=== PATIENT | female | born 1975 | race American Indian/Alaskan Native ===

== ENCOUNTER 2017-10-15 08:46 | Outpatient (CLI) | payer BC ==
--- NOTE | 2017-10-16 08:07 | Mammography Report ---
Bilateral mammogram with tomosynethesis: No previous study available. CAD study utilized. Findings: Scattered lingular parenchyma bilaterally. No mass or microcalcification. Benign axilla. Tomosynethesis examination reveals no distinct mass or microcalcification. Impression: Essentially negative mammogram. BI-RADS CATEGORY: 2 = Benign ACR BI-RADS MAMMOGRAPHIC CODES: 0 = Needs additional imaging evaluation; 1 = Negative; 2 = Benign; 3 = Probably benign; 4 = Suspicious; 5 = Malignant; 6 = Known biopsy-proven malignancy COMMENT: 1. Dense breast tissue, i.e., adenosis, fibrocystic changes, etc., may obscure an underlying neoplasm. 2. Approximately 10% of cancers are not detected with mammography. 3. A negative mammography report should not delay biopsy if a clinically suspicious mass is present. COMMENT: Patient follow-up letters are generated in [employer].
== END 2017-10-15 08:47 | disposition home or self-care (01) ==
LOC: MAMMO 08:46
PROVIDERS: ATTEND Internal Medicine
DX: Z12.31 Encounter for screening mammogram for malignant neoplasm of breast (principal)
CPT/HCPCS: 77063; 77067

== ENCOUNTER 2017-11-21 10:03 | Outpatient (CLI) | payer BC ==
--- NOTE | 2017-11-21 10:52 | Mammography Report ---
Left mammogram and left breast ultrasound: Patient presents with a recently palpable nodule by her and her physician although she can no longer palpate the finding. A marker however is placed over the area identified by the patient. Routine mammography is performed and compared to a recent exam in October 2017. No changes are identified. The breast pattern is heterogeneously dense. Ultrasound over the area of concern in the 6 to 9:00 location shows no findings of significance. Impression: Stable breast pattern with no findings on mammography or ultrasound. Recommendation: Clinical followup. Any additional evaluation should be based on your concern. Otherwise, annual mammogram followup. BI-RADS CATEGORY: 1 = Negative ACR BI-RADS MAMMOGRAPHIC CODES: 0 = Needs additional imaging evaluation; 1 = Negative; 2 = Benign; 3 = Probably benign; 4 = Suspicious; 5 = Malignant; 6 = Known biopsy-proven malignancy COMMENT: 1. Dense breast tissue, i.e., adenosis, fibrocystic changes, etc., may obscure an underlying neoplasm. 2. Approximately 10% of cancers are not detected with mammography. 3. A negative mammography report should not delay biopsy if a clinically suspicious mass is present.
== END 2017-11-21 10:04 | disposition home or self-care (01) ==
LOC: MAMMO 10:03
PROVIDERS: ATTEND Obstetrics & Gynecology
DX: N63.24 Unspecified lump in the left breast, lower inner quadrant (principal)

== ENCOUNTER 2019-01-06 08:05 | Outpatient (CLI) | payer BC ==
[2019-01-06 11:16] LABS: Hematocrit 38.8 % (30.3-42.9); Mean Corpuscular HGB Conc 33 % (30-34); Mean Corpuscular Volume 92 fl (79-97); Platelet Count 239 K/mm3 (140-440); Red Blood Count 4.23 M/mm3 (3.65-5.03); Red Cell Distribution Width 14.3 % (13.2-15.2)
[2019-01-06 11:42] LABS: Alanine Aminotransferase 42 units/L (7-56); Albumin 4.2 g/dL (3.9-5); BUN/Creatinine Ratio 10; Blood Urea Nitrogen 10 mg/dL (7-17); Calcium 9.8 mg/dL (8.4-10.2); Chol/HDL Ratio 3.83 %; HDL Cholesterol 62 mg/dL (40-59); Hemolysis Index 3; LDL Cholesterol,Direct 182 mg/dL (50-130)
--- NOTE | 2019-01-06 12:06 | Mammography Report ---
DIGITAL SCREENING MAMMOGRAM WITH TOMOSYNTHESIS WITH CAD, 01/06/2019 INDICATION: Screening. TECHNIQUE: Digital bilateral 2D and 3D mammography with tomosynthesis was obtained in the craniocaud al and mediolateral oblique projections. Computer-Aided Detection (CAD) analysis was used for interp retation of this study. COMPARISON: 10/15/2017 FINDINGS: Breast Density: The breasts are heterogeneously dense, which may obscure small masses. There is no evidence of dominant mass, suspicious calcifications or architectural distortion in eithe r breast. No significant interval change IMPRESSION: No evidence for malignancy. BI-RADS Category 1: Negative. No mammographic evidence of malignancy. Recommend routine screening mammography in one year. A "normal" or negative report should not discourage follow up or biopsy of a clinically significant f inding. A written summary of these findings will be mailed to the patient. The patient will be entered into a mammography reporting system which will generate a reminder letter for the patient's next appointmen t at the appropriate interval. The [employer] recommends yearly mammograms starting at age 40 and continuing as l [place] as a woman is in good health. Breast MRI is recommended for women with an approximate 20-25% or greater lifetime risk of breast cancer, including women with a strong family history of breast or ova kalee cancer or who have been treated for Hodgkin's disease. Signer Name: Emy Chavis MD Signed: 01/06/2019 12:02 PM Workstation Name: [id number]
[2019-01-09 12:45] LABS: Vitamin D, 25-OH, D2 <4 ng/mL
== END 2019-01-06 08:06 | disposition home or self-care (01) ==
LOC: SPVWC 08:05 → MAMMO 08:05 → SPVWC 08:06
PROVIDERS: ATTEND Obstetrics & Gynecology
DX: Z12.31 Encounter for screening mammogram for malignant neoplasm of breast (principal)
CPT/HCPCS: 36415; 77063; 77067; 80053; 80061; 82306; 82670; 83001; 83036; 84402; 84443; 85027; 86592; 86706; 86803; 86900; 86901; 87806

== ENCOUNTER 2020-04-07 15:18 | Outpatient (CLI) | payer BC ==
[2020-04-07 16:04] LABS: Hematocrit 37.9 % (30.3-42.9); Hemoglobin 12.8 gm/dl (10.1-14.3); Mean Corpuscular HGB Conc 34 % (30-34); Mean Corpuscular Volume 90 fl (79-97); Platelet Count 287 K/mm3 (140-440); Red Blood Count 4.21 M/mm3 (3.65-5.03); Red Cell Distribution Width 14.7 % (13.2-15.2)
[2020-04-07 16:22] LABS: Alanine Aminotransferase 10 units/L (7-56); Albumin 4.2 g/dL (3.9-5); BUN/Creatinine Ratio 18; Blood Urea Nitrogen 18 mg/dL (7-17); Calcium 9.5 mg/dL (8.4-10.2); Chol/HDL Ratio 3.97 %; HDL Cholesterol 68 mg/dL (40-59); Hemolysis Index 6; LDL Cholesterol,Direct 194 mg/dL (50-130)
[2020-04-11 13:49] LABS: Vitamin D, 25-OH, D2 <4 ng/mL
== END 2020-04-07 15:19 | disposition home or self-care (01) ==
LOC: LAB 15:18
PROVIDERS: ATTEND Obstetrics & Gynecology
DX: Z13.220 Encounter for screening for lipoid disorders (principal); Z13.29 Encounter for screening for other suspected endocrine disorder; Z13.21 Encounter for screening for nutritional disorder
CPT/HCPCS: 36415; 80053; 80061; 82306; 82728; 83036; 84436; 84443; 84481; 85027

== ENCOUNTER 2020-04-12 10:35 | Outpatient (CLI) | payer BC ==
--- NOTE | 2020-04-12 16:13 | Ultrasound Report ---
CLINICAL DATA: PELVIC MASS TECHNICAL DATA: Ultrasound, pelvic (nonobstetric), real-time with image documentation; transabdominal and transvagina l imaging with Doppler was performed. FINDINGS: The uterus is of normal size and echogenicity. Several uterine fibroids are present, largest fibroid measures 3.8 cm located in the fundus and second 3.0 cm in the lower uterine segment. Several smaller uterine fibroids are noted. Endometrial thickness is within normal limits. The right and left ovaries are of symmetric size and echogenicity. There are no ovarian or adnexal ma sses. Doppler imaging demonstrates normal vascular flow to both ovaries. There is no significant quantity of free fluid dependently within the pelvis. IMPRESSION: Multiple uterine fibroids as noted GUIDELINES FOR IMAGING OF OVARIAN--ADNEXAL CYST: WOMEN OF REPRODUCTIVE AGE: 1. Cysts <=3 cm: Normal physiologic findings; at the discretion of the interpreting physician whether or not to describe them in the imaging report; do not need follow-up. 2. Cysts >3 and <=5 cm: Should be described in the imaging report with a statement that they are almo st certainly benign; do not need follow-up. 3. Cysts >5 and <=7 cm: Should be described in the imaging report with a statement that they are almo st certainly benign; yearly follow-up with US recommended. 4. Cysts >7 cm: Since these may be difficult to assess completely with US, further imaging with magne tic resonance (MR) or surgical evaluation should be considered. POSTMENOPAUSAL WOMEN: 1. Cysts <=1 cm: Are clinically inconsequential; at the discretion of the interpreting physician whet her or not to describe them in the imaging report; do not need follow-up. 2. Cysts >1 and <=7 cm: Should be described in the imaging report with statement that they are almost certainly benign; yearly follow-up, at least initially, with US recommended. Some practices may opt to increase the lower size threshold for follow-up from 1 cm to as high as 3 cm. One may opt to jesus nue follow-up annually or to decrease the frequency of follow-up once stability or decrease in size h as been confirmed. Cysts in the larger end of this range should still generally be followed on a regu lar basis. 3. Cysts >7 cm: Since these may be difficult to assess completely with US, further imaging with MR or surgical evaluation should be considered. Signer Name: Luis Alberto Rendon MD Signed: 04/12/2020 4:08 PM Workstation Name: [id number]
--- NOTE | 2020-04-13 08:52 | Mammography Report ---
BILATERAL DIGITAL SCREENING MAMMOGRAM WITH TOMOSYNTHESIS CAD HISTORY: SCREENING MAMMO TECHNIQUE: Routine digital mammographic imaging performed. Tomosynthesis images were obtained. This examination was interpreted with the benefit of Computer-aided Detection analysis. COMPARISON: 01/06/2019, 10/15/2017. FINDINGS: Breast Density: heterogeneously dense breast parenchymal pattern which somewhat lessens the sensitivi ty of the evaluation. Digital CC and MLO views demonstrate no mammographic evidence of malignancy. IMPRESSION: No mammographic evidence of malignancy. If the clinical examination remains stable, recommend bilate ral mammogram in approximately one year. BIRADS 1: Negative. FURTHER INFORMATION: According to the [employer], yearly mammograms are recommend ed starting at age 40 and continuing as long as a woman is in good health. Clinical Breast Exams shou ld be part of a periodic health exam-about every 3 years for women in their 20s and 30s and every yea r for women 40 and over. Breast self exam is an option for women starting in their 20s. Any breast ch ioana noted on a breast self exam should be reported promptly to the patient's healthcare provider. Br east MRI is recommended for women with an approximately 20-25% or greater lifetime risk of breast can cer, including women with a strong family history of breast or ovarian cancer and women who have been treated for Hodgkin's disease. A negative Mammography report should not discourage follow up or biopsy of a clinically significant f inding and/or abnormality. Dense breast tissue may obscure small neoplasms. The patient will be entered into a reminder system with a target due date for the next screening mamm ogram. Signer Name: Arturo Mac MD Signed: 04/13/2020 8:47 AM Workstation Name: [id number]
== END 2020-04-12 10:36 | disposition home or self-care (01) ==
LOC: SPVWC 10:35
PROVIDERS: ATTEND Obstetrics & Gynecology
DX: Z12.31 Encounter for screening mammogram for malignant neoplasm of breast (principal); D25.9 Leiomyoma of uterus, unspecified; R19.07 Generalized intra-abdominal and pelvic swelling, mass and lump; N64.89 Other specified disorders of breast
CPT/HCPCS: 76830; 76856; 77063; 77067

== ENCOUNTER 2021-02-17 07:59 | Outpatient (CLI) | payer BC ==
[2021-02-17 09:48] LABS: Bacteria,Urine 1+ /HPF (Negative); Bilirubin,Urine NEG (Negative); Blood,Urine NEG (Negative); Color,Urine Yellow (Yellow); Mucus,Urine FEW /HPF; Protein,Urine <15 mg/dL mg/dL (Negative); Urobilinogen,Urine < 2.0 mg/dL (<2.0)
[2021-02-17 09:49] LABS: Basophils % (Auto) 0.7 % (0.0-1.8); Eosinophils # (Auto) 0.2 K/mm3 (0.0-0.4); Eosinophils % (Auto) 5.4 % (0.0-4.3); Hematocrit 38.7 % (30.3-42.9); Lymphocytes # (Auto) 1.5 K/mm3 (1.2-5.4); Lymphocytes % (Auto) 38.1 % (13.4-35.0); Mean Corpuscular HGB Conc 34 % (30-34); Mean Corpuscular Volume 91 fl (79-97); Monocytes # (Auto) 0.3 K/mm3 (0.0-0.8); Monocytes % (Auto) 7.3 % (0.0-7.3); Platelet Count 231 K/mm3 (140-440); Red Blood Count 4.25 M/mm3 (3.65-5.03); Red Cell Distribution Width 14.5 % (13.2-15.2)
[2021-02-17 10:05] LABS: Chol/HDL Ratio 4.14 %; Uric Acid 4.1 mg/dL (3.5-7.6)
[2021-02-17 10:08] LABS: Erythrocyte Sedimentation Rate 20 mm/Hr (0-20)
--- NOTE | 2021-02-17 11:33 | XRay Report ---
XR ankle 3+V RT INDICATION / CLINICAL INFORMATION: PAIN IN RIGHT ANKLE. COMPARISON: None available. FINDINGS: BONES/JOINT(S): No acute fracture or subluxation. No significant degenerative changes. SOFT TISSUES: Mild generalized soft tissue swelling. No foreign bodies. ADDITIONAL FINDINGS: None. Signer Name: Sukumar Machuca MD Signed: 02/17/2021 11:29 AM Workstation Name: [id number]
== END 2021-02-17 08:00 | disposition home or self-care (01) ==
LOC: XRAY 07:59
PROVIDERS: ATTEND Internal Medicine
DX: Z00.00 Encounter for general adult medical examination without abnormal findings (principal); Z13.1 Encounter for screening for diabetes mellitus; Z13.220 Encounter for screening for lipoid disorders; Z13.29 Encounter for screening for other suspected endocrine disorder; E55.9 Vitamin D deficiency, unspecified; M25.571 Pain in right ankle and joints of right foot; M79.89 Other specified soft tissue disorders
CPT/HCPCS: 36415; 80061; 81001; 82306; 82607; 83036; 84443; 84550; 85025; 85652; 86038; 86431

== ENCOUNTER 2021-07-24 09:41 | Outpatient (CLI) | payer BC ==
[2021-07-24 10:54] LABS: Chol/HDL Ratio 3.85 %
== END 2021-07-24 09:42 | disposition home or self-care (01) ==
LOC: LAB 09:41
PROVIDERS: ATTEND Internal Medicine
DX: R73.03 Prediabetes (principal); E78.5 Hyperlipidemia, unspecified
CPT/HCPCS: 36415; 80061; 83036

== ENCOUNTER 2021-10-19 10:33 | Emergency (ER) | payer BC ==
[2021-10-19 10:44] VITALS: BP 116/76
--- NOTE | 2021-10-19 11:21 | XRay Report ---
CHEST 2 VIEWS INDICATION / CLINICAL INFORMATION: Chest Pain. COMPARISON: None available. FINDINGS: SUPPORT DEVICES: None. HEART / MEDIASTINUM: No significant abnormality. LUNGS / PLEURA: No significant pulmonary or pleural abnormality. No pneumothorax. ADDITIONAL FINDINGS: No significant additional findings. IMPRESSION: 1. No acute findings. Signer Name: Mercedez Aden MD Signed: 10/19/2021 11:17 AM Workstation Name: [id number]
[2021-10-19 11:56] LABS: Basophils # (Auto) 0.1 K/mm3 (0.0-0.1); Eosinophils # (Auto) 0.2 K/mm3 (0.0-0.4); Eosinophils % (Auto) 2.8 % (0.0-4.3); Hematocrit 39.4 % (30.3-42.9); Lymphocytes # (Auto) 1.5 K/mm3 (1.2-5.4); Lymphocytes % (Auto) 26.4 % (13.4-35.0); Mean Corpuscular HGB Conc 33 % (30-34); Mean Corpuscular Volume 89 fl (79-97); Monocytes # (Auto) 0.4 K/mm3 (0.0-0.8); Platelet Count 281 K/mm3 (140-440); Red Blood Count 4.43 M/mm3 (3.65-5.03); Red Cell Distribution Width 14.1 % (13.2-15.2)
[2021-10-19 12:20] LABS: Alanine Aminotransferase 12 units/L (7-56); Albumin 4.7 g/dL (3.9-5); BUN/Creatinine Ratio 17; Blood Urea Nitrogen 17 mg/dL (7-17); Calcium 10.2 mg/dL (8.4-10.2); Hemolysis Index 3
[2021-10-19] MEDS ORDERED: predniSONE 20 MG TAB PO ONE (12:28)
[2021-10-19] MEDS ORDERED: KETOROLAC 10 MG TAB PO ONE (12:28)
--- NOTE | 2021-10-19 12:35 | Emergency Department Report ---
ED Chest Pain HPI - General Chief Complaint: Chest Pain Stated Complaint: CHEST PAIN/ARM NUMBNESS Time Seen by Provider: 10/19/21 11:48 Source: patient Mode of arrival: Ambulatory Limitations: No Limitations - History of Present Illness Initial Comments: 46-year-old black female with no past medical history and no family history of CAD presents to the emergency department for evaluation of chest pain and soreness that started yesterday. She states that she was working out in the gym then started to have soreness and heaviness to her mid chest. She states that she completed her workout and did not have any increase in pain. She states that she still had the pain when she woke up this morning and then started to have some numbness to her right arm so she decided to come into the emergency department. She states that she drank some zoey bhavik last night that improved the heaviness to her chest initially. She states that chest pain was associated with some shortness of breath but she denies nausea, vomiting, dizziness, and diaphoresis. She states that pain at its worse is 5-6 out of 10 and worse with deep inspiration. MD Complaint: chest pain -: Sudden, days(s) (1) Onset: during rest Pain Location: substernal Pain Radiation: none Severity: mild Severity scale (0 -10): 5 Quality: heaviness Consistency: intermittent Worsens With: inspiration re: dyspnea. denies: nausea, vomting, diaphoresis, sense of impending doom Other Symptoms: denies: cough, fever, syncope, rash, acid taste in mouth, leg swelling, palpitations, burping Treatments Prior to Arrival: other (Zoey bhavik) Aspirin use within the Past 7 Days: (0) No - Related Data On Oral Contraceptives: No Previous Rx's Medication Instructions Recorded Last Taken Type Naproxen [Naprosyn] 500 mg PO BID #14 tab 10/19/21 Unknown Rx Allergies Allergy/AdvReac Type Severity Reaction Status Date / Time shellfish derived Allergy Hives Unverified 04/07/20 15:19 Heart Score - HEART Score History: Slightly suspicious EKG: Normal Age: 45-65 Risk factors: 1-2 risk factors Troponin: < normal limit HEART Score: 2 - EKG Read Time Time EKG Completed: 10:49 EKG Read Time: 10:50 - Critical Actions Critical Actions: 0-3 pts:0.9-1.7%risk of adverse cardiac event.Candidate for discharge ED Review of Systems ROS: Stated complaint: CHEST PAIN/ARM NUMBNESS Other details as noted in HPI Comment: All other systems reviewed and negative Constitutional: denies: chills, fever Eyes: denies: eye pain, eye discharge, vision change ENT: denies: throat pain, congestion Respiratory: shortness of breath. denies: cough, SOB with exertion, SOB at rest, stridor, wheezing Cardiovascular: chest pain. denies: palpitations, dyspnea on exertion, orthopne a, edema, syncope, paroxysmal nocturnal dyspnea Gastrointestinal: denies: abdominal pain, nausea, vomiting, diarrhea, hematemesis, melena, hematochezia Genitourinary: denies: urgency, dysuria, frequency, hematuria, discharge Musculoskeletal: denies: back pain, arthralgia, myalgia Skin: denies: lesions Neurological: denies: headache, weakness, numbness, abnormal gait, vertigo Hematological/Lymphatic: denies: easy bleeding ED Past Medical Hx - Medications Home Medications: Home Medications Medication Instructions Recorded Confirmed Last Taken Type Naproxen [Naprosyn] 500 mg PO BID #14 tab 10/19/21 Unknown Rx ED Physical Exam - General Limitations: No Limitations General appearance: alert, in no apparent distress - Head Head exam: Present: atraumatic, normocephalic - Eye Eye exam: Present: normal appearance. Absent: conjunctival injection - Neck Neck exam: Present: normal inspection, full ROM. Absent: tenderness, lymphadenopathy, thyromegaly - Respiratory Respiratory exam: Present: normal lung sounds bilaterally, chest wall tenderness. Absent: respiratory distress, wheezes, rales, rhonchi, stridor - Cardiovascular Cardiovascular Exam: Present: regular rate, normal heart sounds - GI/Abdominal GI/Abdominal exam: Present: soft, normal bowel sounds. Absent: distended, tenderness, guarding, rebound, rigid - Extremities Exam Extremities exam: Present: normal inspection, full ROM, normal capillary refill. Absent: tenderness, pedal edema, joint swelling, calf tenderness - Back Exam Back exam: Present: normal inspection. Absent: CVA tenderness (R), CVA tenderness (L), paraspinal tenderness, vertebral tenderness - Neurological Exam Neurological exam: Present: alert, oriented X3, normal gait - Psychiatric Psychiatric exam: Present: normal affect, normal mood - Skin Skin exam: Present: warm, dry, intact, normal color ED Course Vital Signs 10/19/21 10:40 Temperature 98.3 F Pulse Rate 99 H Respiratory 18 Rate Blood Pressure 116/76 [Left] O2 Sat by Pulse 99 Oximetry ED Medical Decision Making - Lab Data Result diagrams: 10/19/21 11:10 10/19/21 11:10 - EKG Data EKG shows normal: sinus rhythm Rate: normal - EKG Data Interpretation: no acute changes, normal EKG - Radiology Data Radiology results: report reviewed, image reviewed Chest x-ray: FINDINGS: SUPPORT DEVICES: None. HEART / MEDIASTINUM: No significant abnormality. LUNGS / PLEURA: No significant pulmonary or pleural abnormality. No pneumothorax. ADDITIONAL FINDINGS: No significant additional findings. IMPRESSION: 1. No acute findings. - Medical Decision Making 46-year-old black female with no past medical history and no family history of CAD presents to the emergency department for evaluation of chest pain and soreness that started yesterday. She states that she was working out in the gym then started to have soreness and heaviness to her mid chest. She states that she completed her workout and did not have any increase in pain. She states that she still had the pain when she woke up this morning and then started to have some numbness to her right arm so she decided to come into the emergency department. She states that she drank some zoey bhavik last night that improved the heaviness to her chest initially. She states that chest pain was associated with some shortness of breath but she denies nausea, vomiting, dizziness, and diaphoresis. She states that pain at its worse is 5-6 out of 10 and worse with deep inspiration. EKG without acute ischemic changes noted, chest x-ray without any acute changes noted, troponin within normal limits, and heart score of 2. Pain worse with inspiration and palpation. Low suspicion for ACS. Patient is advised to take medications as prescribed and follow-up with cardiology for further evaluation and management. She is advised to return to the emergency department for any concerning symptoms. She verbalizes understanding of and agreement with plan of care. Critical care attestation.: If time is entered above; I have spent that time in minutes in the direct care of this critically ill patient, excluding procedure time. ED Disposition Clinical Impression: Chest pain Qualifiers: Chest pain type: unspecified Qualified Code(s): R07.9 - Chest pain, unspecified Disposition: HOME / SELF CARE / HOMELESS Is pt being admited?: No Does the pt Need Aspirin: No Condition: Stable Instructions: Chest Wall Pain, [id number], Nonspecific Chest Pain, Adult, Pleurisy, [id number] Additional Instructions: Take medications as prescribed. Follow-up with primary care provider or cardiology for further evaluation and management. Return to the emergency department as needed. Prescriptions: Naproxen [Naprosyn] 500 mg PO BID #14 tab Referrals: MIRZA MARCELINO MD [Primary Care Provider] - 3-5 Days ROMY DO MD [Staff Physician] - 3-5 Days Forms: Work/School Release Form(ED) Time of Disposition: 12:34
--- NOTE | 2021-10-20 10:07 | Electrocardiograph Report ---
[facility] Test Date: 2021-10-19 Test Time: 10:49:18 Pat Name: MYRON STYLES Department: Room: Gender: F Direct Marketing Representative: EVELIO : 1975 Requested By: BRAVO PRADO Order Number: [id number] Reading MD: Shay Ho Measurements Intervals [place] Rate: 94 P: 58 [place]: 178 QRS: 46 QRSD: 80 T: 29 QT: 344 QTc: 430 Interpretive Statements Sinus rhythm Probable left atrial enlargement Low voltage, precordial leads No previous ECG available for comparison Electronically Signed On 10-20-2021 10:07:02 EDT by Shay Ho
== END 2021-10-19 12:56 | disposition home or self-care (01) ==
LOC: EEVIPCON 10:33 → ED 10:33
DX: R07.9 Chest pain, unspecified (principal); Z91.013 Allergy to seafood
CPT/HCPCS: 71046; 80053; 84484; 85025; 93005; 99284